=== PATIENT | female | born 1935 | race Caucasian/White ===

== ENCOUNTER → 2017-07-06 | Outpatient (CLI) | payer MEDICARE ==
[~2017-07-06] MED LIST: ACET500 PO; ALBU90OI INH; ASPI325; ASPI81CH PO; ASPI81EC PO; ATOR10; AZIT250 PO; BENZ100A PO; CALPHO600 PO; CEPH500 PO; CHOL10002 PO; CITA20 PO; CLON.5 PO; CLOP75; CLOP75 PO; CYAN1000 PO; EZET10 PO; FENO145 PO; FENO160 PO; FISH OIL; FURO20 PO; HEARTBURN RELI150 M1 PO; HYDACE5 PO; HYDCHL12.5 PO; HYDCHL25 PO; HYDCHL50; HYDR1TAB94; Hydrochlorothia50 MG PO; IRBE150 PO; LEVSOD75 PO; LEVSOD88; LEVSOD88 PO; LISI20 PO; LISI5 PO; LOSA25 PO; MULVITMIND PO; NITR.4SL SL; OMEG1CAP30 PO; OMEP20ER PO; ONDA4 PO; PANT40 PO; POTCHL10ER; POTCHL10ER PO; PRAV40 PO; Pravachol80 MG PO; SERT100 PO; SERT50; SIMV20 PO; VENL75ER PO; VERA180ERB PO
[2017-07-06 10:24] LABS: BASOPHILS ABSOLUTE AUTO 0.05 K/mm3 (0.00-0.23); BASOPHILS PERCENT AUTO 1 % (0-2); EOSINOPHILS ABSOLUTE AUTO 0.24 K/mm3 (0.00-0.68); EOSINOPHILS PERCENT AUTO 2 % (0-6); Hematocrit 38.3 % (33.0-51.0); Hemoglobin 12.9 g/dL (11.5-16.0); IMMATURE GRAN ABSOLUTE AUTO 0.03 K/mm3 (0.00-0.10); IMMATURE GRAN PERCENT AUTO 0 % (0-1); LYMPHOCYTES ABSOLUTE AUTO 1.65 K/mm3 (0.84-5.20); LYMPHOCYTES PERCENT AUTO 16 % (21-46); MONOCYTES ABSOLUTE AUTO 0.73 K/mm3 (0.16-1.47); MONOCYTES PERCENT AUTO 7 % (4-13); Mean Corpuscular HGB 31.5 pg (26.0-34.0); Mean Corpuscular HGB Conc 33.7 g/dL (31.5-36.5); Mean Corpuscular Volume 94 fL (80-100); Mean Platelet Volume 10.1 fL (9.1-12.4); NEUTROPHILS ABSOLUTE AUTO 7.82 K/mm3 (1.96-9.15); NEUTROPHILS PERCENT AUTO 74 % (41-73); Platelet Count 222 K/mm3 (150-400); RDW Coefficient Variation 12.2 % (11.7-14.2); RDW Standard Deviation 41.9 fL (35.1-46.3); Red Blood Cell Count 4.09 M/mm3 (3.80-5.20); White Blood Cell Count 10.52 K/mm3 (4.00-11.30)
[2017-07-06 10:41] LABS: Alanine Aminotransfer (ALT/SGP 27 U/L (12-78); Albumin/Globulin Ratio 1.3 (0.8-1.8); Alk Phos 75 U/L (40-126); Anion Gap 9 mmol/L (6-16); Aspartate Aminotrans (AST/SGOT 16 U/L (12-37); Bilirubin, Total 0.7 mg/dL (0.1-1.0); Blood Urea Nitrogen 11 mg/dL (8-24); Bun/Creatinine Ratio 12.4 (12.0-20.0); CO2, Blood 28 mmol/L (21-32); Calcium, Blood 9.5 mg/dL (8.5-10.1); Chloride, Blood 101 mmol/L (98-108); Creatinine, Blood 0.89 mg/dL (0.40-1.00); Globulin, Blood 3.2 g/dL (2.2-4.0); Glomerular Filtration Rate >60 (60-); Glucose, Blood 111 mg/dL (70-99); Sodium, Blood 138 mmol/L (136-145); Total Protein, Blood 7.2 g/dL (6.4-8.2)
== END ==
LOC: LAB EV 10:19
PROVIDERS: General Practice
DX: K21.9 Gastro-esophageal reflux disease without esophagitis (principal)
CPT/HCPCS: 80053; 85025

== ENCOUNTER 2018-01-13 11:13 | Emergency (ER) | payer MEDICARE ==
[~2018-01-13] VITALS: Ht 160 cm; Wt 59.0 kg
[~2018-01-13 11:13] MED LIST changes: -HEARTBURN RELI150 M1 PO; -HYDCHL12.5 PO; -IRBE150 PO
[2018-01-13] MEDS ORDERED: HEARTBURN RELI150 M1 PO (12:10)
[2018-01-13] MEDS ORDERED: HYDCHL12.5 PO (12:11)
[2018-01-13] MEDS ORDERED: IRBE150 PO (12:11)
[2018-01-13] MEDS ORDERED: SERT100 PO (12:12)
== END 2018-01-13 12:58 | disposition home or self-care (01) ==
LOC: ER 11:13
DX: F41.9 Anxiety disorder, unspecified (principal); F43.9 Reaction to severe stress, unspecified; I10 Essential (primary) hypertension; I25.10 Atherosclerotic heart disease of native coronary artery without angina pectoris; E03.9 Hypothyroidism, unspecified; Z88.5 Allergy status to narcotic agent; Z88.8 Allergy status to other drugs, medicaments and biological substances; Z88.6 Allergy status to analgesic agent; Z79.899 Other long term (current) drug therapy; Z79.01 Long term (current) use of anticoagulants; Z79.82 Long term (current) use of aspirin
CPT/HCPCS: 99283; Q0177

== ENCOUNTER 2019-03-03 09:09 | Day surgery (SDC) | payer MEDICARE ==
[~2019-03-03] VITALS: Ht 160 cm; Wt 64.5 kg
[~2019-03-03 09:09] MED LIST changes: +ACID REDUCER 1150 MG PO; +Abilify2 MG PO; +Flonase 0.05% N16 GM; +HEARTBURN RELI150 M1 PO; +HYDCHL12.5 PO; +IRBE150 PO; +OMEPRAZOLE20 MG PO; +Synthroid88 MCG PO
[2019-03-03] MEDS ORDERED: CYAN500 PO (10:22)
--- NOTE | 2019-03-03 14:40 | NUR ---
PT TO RECOVERY ROOM POST PROCEDURE. PT IS ALERT AND ORIENTED, ANSWERING QUESTIONS APPROPRIATELY. PT DENIES PAIN OR DISCOMFORT. MONITOR SR WITH 1ST DEGREE 70'S, B/P 123/60, SPO2 95% RA. R GROIN SOFT NO SWELLING/HEMATOMA, SHEATH IN PLACE, TEGADERM C,D,I. PLAN IS TO PULL SHEATH WHEN ACT 165 OR LESS. PT'S FAMILY @ BEDSIDE ATTENTIVE.
--- NOTE | 2019-03-03 16:25 | NUR ---
DR UNDERWOOD NOTIFIED OF PT'S ELEVATED B/P PRIOR TO SHEATH PULL, ORDERS RECEIVED; ADMINISTERED 10MG IV LABETOLOL.
--- NOTE | 2019-03-03 17:05 | NUR ---
6 FR SHEATH REMOVED, MANUAL PRESSURE X 22 MIN, SITE SOFT WITHOUT SWELLING/HEMATOMA, EMILIA AND TEGADERM DRSG IN PLACE.
--- NOTE | 2019-03-03 20:00 | NUR ---
CARE ASSUMPTION PT A&O X4. VSS. R GROIN SITE NOTED TO HAVE DRY RED/BROWN DISCHARGE ON GAUZE, SITE ASSESSED W/ DAY SHIFT RN W/ REPORT OF NO CHANGES. NO NEW BLEEDING, NO HEMATOMA. PT LAYING FLAT IN BED. WILL CONTINUE TO MONITOR AND PROVIDE CARE.
--- NOTE | 2019-03-04 06:31 | NUR ---
SHIFT SUMMARY PT A&O X4. VSS. R GROIN SITE WNL, NO BLEEDING, NO HEMATOMA. WILL CONTINUE TO MONITOR AND PROVIDE CARE UNTIL REPORT OFF TO DAY SHIFT RN.
--- NOTE | 2019-03-04 10:21 | NUR ---
SHIFT SUMMARY PT A&Ox4. CALM AND COOPERATIVE WITH CARE, PT RESTING IN BED FOR MAJORITY OF AM, UP TO BATHROOM WITH SBA. PT DENIES PAIN, SOB, NAUSEA, DIZZINESS/LIGHTHEADEDNESS AND CHEST PAIN DURING SHIFT. PT RIGHT GROIN SITE NO SIGNS OF ACTIVE BLEEDING OR HEMATOMA, SOFT AND TENDERS ON PALPATATION. SMALL AMOUNT OF DRIED BLOOD AT SITE AND SCANT AMOUNT OF BRUISING NOTED. EDUCATED PT AND DAUGHTER ON SITE CARE AND WHEN TO SEEK MEDICAL ATTENTION OR CALL 911 IF BLEEDING AND HOLD PRESSURE. VSS. NO OTHER ACUTE CHANGES NOTED. EDUCATED PT ON DISCHARGE INSTUCTIONS, MEDCAIONTS AND FOLLOW UP APPOINTMENTS. PT GIVEN PHYSICAL PRESCRIPTIONS FOR NORVASC AND IMDUR. SITE CHECKED RIGHT BEFORE DISCHAGE WITH NO CHANGES. PT LEFT ROOM VIA WHEELCHAIR AT 0950. PT STABLE UPON DISCHARGE.
== END 2019-03-04 10:35 | disposition home or self-care (01) ==
LOC: MHTC 09:09 → PCU 16:33 → MHTC 03-04 10:35
DX: I25.119 Atherosclerotic heart disease of native coronary artery with unspecified angina pectoris (principal); T82.855A Stenosis of coronary artery stent, initial encounter; I08.0 Rheumatic disorders of both mitral and aortic valves; G47.33 Obstructive sleep apnea (adult) (pediatric); I10 Essential (primary) hypertension; E03.9 Hypothyroidism, unspecified; E78.5 Hyperlipidemia, unspecified; E78.00 Pure hypercholesterolemia, unspecified; Z79.899 Other long term (current) drug therapy; Z79.02 Long term (current) use of antithrombotics/antiplatelets; Z88.5 Allergy status to narcotic agent; Z88.8 Allergy status to other drugs, medicaments and biological substances; Z88.6 Allergy status to analgesic agent
CPT/HCPCS: 85347; 93005; 93010; 93454; 93458; 93571; 99152; 99153; C1769; C1887; J0360; J1644; J2250; J3010; J7030; Q9967

== ENCOUNTER 2019-07-25 08:32 | Day surgery (SDC) | payer MEDICARE ==
[~2019-07-25 08:32] MED LIST changes: +AMLO5 PO; +CYAN500 PO; +DESV50 PO; +Isosorbide Mono30 MG PO; +METO25ER PO
== END 2019-07-25 23:40 | disposition home or self-care (01) ==
LOC: MOI US 08:32
DX: C50.911 Malignant neoplasm of unspecified site of right female breast (principal)
CPT/HCPCS: 19285; 77065

== ENCOUNTER 2019-07-30 08:24 | Day surgery (SDC) | payer MEDICARE ==
[~2019-07-30] VITALS: Ht 160 cm; Wt 72.3 kg
--- NOTE | 2019-07-30 10:44 | NUR ---
Ambulatory in Day Surgery History, Chart, Medications and Allergies reviewed before start of procedure. Lungs clear T/O to Auscultation. Patient confirms NPO status and agrees with scheduled surgery. Pre-Op teaching done. Pt verbalizes understanding. Patient States Post-Procedure ride home has been arranged.
--- NOTE | 2019-07-30 14:15 | NUR ---
"DAY SURGERY RN | REPORT FROM FREDA MACARIO O2 APPLIED TO PATIENT (2 L) PATIENT WAS O2 SAT BELOW 90%. DENIES PAIN AND [place]. TIRTRATED O2 TO 1 L PATIENT IN MID 90'S. PATIENT TOLERATING PO FLUIDS AND FOOD. DISCHARGE INSTRUCTIONS GIVEN TO PATIENT WITH FAMILY PRESENT. NO ISSUES OR QUESTIONS. RX GIVEN TO FAMILY WHO TOOK THE SCRIPT TO PHARMACY. COPY IN CHART."
--- NOTE | 2019-07-30 14:36 | NUR ---
"DAY SURGERY RN | DISCHARGE VSS. SITE C/D/I. NO ISSUES. TAKEN IN WHEELCHAIR TO FRONT ENTRANCE BY VOLUNTEER."
--- NOTE | 2019-07-31 16:21 | NUR ---
07/31/19 1621 Dolores Yanes VERIFICATIONS: EDIT CHART.
== END 2019-07-30 22:50 | disposition home or self-care (01) ==
LOC: RAD 08:24 → ORSCMMR 08:27 → RAD 09:30 → NM 09:30 → RAD 22:50
DX: C50.811 Malignant neoplasm of overlapping sites of right female breast (principal); I10 Essential (primary) hypertension; E78.5 Hyperlipidemia, unspecified; E03.9 Hypothyroidism, unspecified; G47.33 Obstructive sleep apnea (adult) (pediatric); F32.9 Major depressive disorder, single episode, unspecified; Z17.0 Estrogen receptor positive status [ER+]; Z79.82 Long term (current) use of aspirin; Z79.899 Other long term (current) drug therapy; Z79.02 Long term (current) use of antithrombotics/antiplatelets; Z88.6 Allergy status to analgesic agent; Z88.5 Allergy status to narcotic agent; Z99.89 Dependence on other enabling machines and devices
CPT/HCPCS: 38792; 76098; A9520; J0690; J1100; J1885; J2370; J2405; J2704; J3010; J7120; Q9968

== ENCOUNTER 2020-02-18 17:47 | Emergency (ER) | payer MEDICARE ==
[~2020-02-18] VITALS: Ht 160 cm; Wt 72.6 kg
[~2020-02-18 17:47] MED LIST changes: -ASPI81CH PO; +Aspirin EC81 MG PO; -Pravachol80 MG PO; +Pravastatin Sod80 MG PO
[2020-02-18 18:30] LABS: Source, Urine Clean Catch
[2020-02-18 18:38] LABS: BASOPHILS ABSOLUTE AUTO 0.06 K/mm3 (0.00-0.23); BASOPHILS PERCENT AUTO 1 % (0-2); EOSINOPHILS ABSOLUTE AUTO 0.26 K/mm3 (0.00-0.68); EOSINOPHILS PERCENT AUTO 4 % (0-6); Hematocrit 37.2 % (33.0-51.0); Hemoglobin 12.4 g/dL (11.5-16.0); IMMATURE GRAN ABSOLUTE AUTO 0.02 K/mm3 (0.00-0.10); IMMATURE GRAN PERCENT AUTO 0 % (0-1); LYMPHOCYTES ABSOLUTE AUTO 1.54 K/mm3 (0.84-5.20); LYMPHOCYTES PERCENT AUTO 21 % (21-46); MONOCYTES ABSOLUTE AUTO 0.71 K/mm3 (0.16-1.47); MONOCYTES PERCENT AUTO 10 % (4-13); Mean Corpuscular HGB 31.3 pg (26.0-34.0); Mean Corpuscular HGB Conc 33.3 g/dL (31.5-36.5); Mean Corpuscular Volume 94 fL (80-100); Mean Platelet Volume 10.2 fL (9.1-12.4); NEUTROPHILS ABSOLUTE AUTO 4.71 K/mm3 (1.96-9.15); NEUTROPHILS PERCENT AUTO 65 % (41-73); Platelet Count 189 K/mm3 (150-400); RDW Coefficient Variation 12.5 % (11.7-14.2); RDW Standard Deviation 43.1 fL (35.1-46.3); Red Blood Cell Count 3.96 M/mm3 (3.80-5.20)
[2020-02-18 18:42] LABS: Appearance, Urine Clear (Clear); Bilirubin, Urine Neg (Neg); Blood, Urine 2+ (Neg); Color, Urine Yellow (P-Yellow); Glucose Qualitative, Urine Neg (Neg); Ketones, Urine Neg (Neg); Leukocyte Esterase, Urine 3+ (Neg); Nitrite, Urine Neg (Neg); Protein, Urine 1+ (Neg); Urobilinogen, Urine NORM (Normal)
[2020-02-18 18:51] LABS: Bacteria Many /hpf; Red Blood Cells, Urine 0-2 /hpf (0-2); Squamous Epithelial Cells Rare /hpf (Few); White Blood Cells, Urine 50-100 /hpf (0-5)
[2020-02-18 19:00] LABS: Albumin/Globulin Ratio 1.3 (0.8-1.8); Bilirubin, Total 0.6 mg/dL (0.1-1.0); Bun/Creatinine Ratio 21.9 (12.0-20.0); Calcium, Blood 9.9 mg/dL (8.5-10.1); Creatinine, Blood 0.96 mg/dL (0.40-1.00); Globulin, Blood 3.1 g/dL (2.2-4.0); Potassium, Blood 4.4 mmol/L (3.5-5.5); Total Protein, Blood 7.1 g/dL (6.4-8.2)
[2020-02-18] MEDS ORDERED: CEPH500 PO (21:49)
[2020-02-19] MEDS ORDERED: ANAS1 PO (16:00)
[2020-02-19] MEDS ORDERED: ABILIFY MYCITE2 MG PO (17:51)
[2020-02-19] MEDS ORDERED: HYDCHL50 PO (17:52)
[2020-02-19] MEDS ORDERED: ISOSORBIDE MONO60 MG PO (17:53)
[2020-02-19] MEDS ORDERED: EUTHYROX88 MCG PO (17:54)
[2020-02-19] MEDS ORDERED: LOSARTAN POTAS100 M1 PO (17:55)
[2020-02-19] MEDS ORDERED: METO25ER PO (17:57)
[2020-02-19] MEDS ORDERED: Klor-Con 1010 MEQ PO (17:58)
[2020-02-19] MEDS ORDERED: AMLO5 PO (18:13)
== END 2020-02-18 22:35 | disposition home or self-care (01) ==
LOC: ER 17:47
PROVIDERS: Emergency Medicine
DX: N12 Tubulo-interstitial nephritis, not specified as acute or chronic (principal); I10 Essential (primary) hypertension; I25.10 Atherosclerotic heart disease of native coronary artery without angina pectoris; E03.9 Hypothyroidism, unspecified; Z95.5 Presence of coronary angioplasty implant and graft; Z79.02 Long term (current) use of antithrombotics/antiplatelets; Z79.899 Other long term (current) drug therapy; Z79.82 Long term (current) use of aspirin
CPT/HCPCS: 36415; 74177; 80053; 81001; 85025; 87077; 87086; 87147; 87186; 96374; 99284-25; J0696; J1885; Q9967

== ENCOUNTER 2020-02-19 13:56 | Observation (INO) | payer MEDICARE ==
[~2020-02-19] VITALS: Ht 160 cm; Wt 72.6 kg
[2020-02-19 14:51] LABS: BASOPHILS ABSOLUTE AUTO 0.04 K/mm3 (0.00-0.23); BASOPHILS PERCENT AUTO 1 % (0-2); EOSINOPHILS ABSOLUTE AUTO 0.22 K/mm3 (0.00-0.68); EOSINOPHILS PERCENT AUTO 3 % (0-6); Hematocrit 35.6 % (33.0-51.0); Hemoglobin 11.8 g/dL (11.5-16.0); IMMATURE GRAN ABSOLUTE AUTO 0.02 K/mm3 (0.00-0.10); IMMATURE GRAN PERCENT AUTO 0 % (0-1); LYMPHOCYTES ABSOLUTE AUTO 1.29 K/mm3 (0.84-5.20); LYMPHOCYTES PERCENT AUTO 18 % (21-46); MONOCYTES ABSOLUTE AUTO 0.57 K/mm3 (0.16-1.47); MONOCYTES PERCENT AUTO 8 % (4-13); Mean Corpuscular HGB 31.3 pg (26.0-34.0); Mean Corpuscular HGB Conc 33.1 g/dL (31.5-36.5); Mean Corpuscular Volume 94 fL (80-100); Mean Platelet Volume 10.2 fL (9.1-12.4); NEUTROPHILS ABSOLUTE AUTO 4.86 K/mm3 (1.96-9.15); NEUTROPHILS PERCENT AUTO 70 % (41-73); Platelet Count 186 K/mm3 (150-400); RDW Coefficient Variation 12.6 % (11.7-14.2); RDW Standard Deviation 43.1 fL (35.1-46.3); Red Blood Cell Count 3.77 M/mm3 (3.80-5.20)
[2020-02-19] MEDS ORDERED: ANAS1 PO (16:00)
[2020-02-19 16:49] LABS: Source, Urine Voided
[2020-02-19 16:57] LABS: Appearance, Urine Clear (Clear); Bilirubin, Urine Neg (Neg); Blood, Urine Neg (Neg); Color, Urine Yellow (P-Yellow); Glucose Qualitative, Urine Neg (Neg); Ketones, Urine Neg (Neg); Leukocyte Esterase, Urine Neg (Neg); Nitrite, Urine Neg (Neg); Protein, Urine Neg (Neg); Specific Gravity, Urine 1.015 (1.003-1.022); Urobilinogen, Urine NORM (Normal)
[2020-02-19] MEDS ORDERED: ABILIFY MYCITE2 MG PO (17:51)
[2020-02-19] MEDS ORDERED: HYDCHL50 PO (17:52)
[2020-02-19] MEDS ORDERED: ISOSORBIDE MONO60 MG PO (17:53)
[2020-02-19] MEDS ORDERED: EUTHYROX88 MCG PO (17:54)
[2020-02-19] MEDS ORDERED: LOSARTAN POTAS100 M1 PO (17:55)
[2020-02-19] MEDS ORDERED: METO25ER PO (17:57)
[2020-02-19] MEDS ORDERED: Klor-Con 1010 MEQ PO (17:58)
[2020-02-19] MEDS ORDERED: AMLO5 PO (18:13)
--- NOTE | 2020-02-19 18:48 | NUR ---
SHIFT SUMMARY: ASSUMED CARE OF PATIENT UPON HER ARRIVAL FROM ED AT 1720. A&O X 4, PLEASANT AND COOPERATIVE. STATED PAIN IS WELL CONTROLLED AT THIS TIME. GETTING UP TO BR INDEPENDENTLY. FLU VACCINE NOT AVAILABLE AT THIS TIME. PLAN IS FOR IV ABX.
--- NOTE | 2020-02-20 04:37 | NUR ---
MATERIAL CHASER SUMMARY PT BEGAN SHIFT W NO PAIN AND REQUESTING FOOD HOWEVER, PT SUDDENLY C/O 12/04 R FLANK PAIN AND WAS GIVEN IV TORADOL WHICH GAVE HER MUCH RELIEF. PT SLEPT MAJORITY OF THE NIGHT W CPAP ON AND CONTINUOUS PULSE OX WHICH ALARMED SEVERAL TIMES DUE TO A PULSE RATE DROPPING INTO THE 40'S, PULSE WOULD RISE TO THE MID 50'S WHILE THE PT WAS AWAKE.
[2020-02-20 04:56] LABS: BASOPHILS ABSOLUTE AUTO 0.02 K/mm3 (0.00-0.23); BASOPHILS PERCENT AUTO 0 % (0-2); EOSINOPHILS PERCENT AUTO 4 % (0-6); Hematocrit 31.6 % (33.0-51.0); Hemoglobin 10.5 g/dL (11.5-16.0); IMMATURE GRAN ABSOLUTE AUTO 0.02 K/mm3 (0.00-0.10); IMMATURE GRAN PERCENT AUTO 0 % (0-1); LYMPHOCYTES ABSOLUTE AUTO 1.33 K/mm3 (0.84-5.20); LYMPHOCYTES PERCENT AUTO 26 % (21-46); MONOCYTES ABSOLUTE AUTO 0.48 K/mm3 (0.16-1.47); MONOCYTES PERCENT AUTO 9 % (4-13); Mean Corpuscular HGB 31.3 pg (26.0-34.0); Mean Corpuscular HGB Conc 33.2 g/dL (31.5-36.5); Mean Corpuscular Volume 94 fL (80-100); Mean Platelet Volume 10.3 fL (9.1-12.4); NEUTROPHILS ABSOLUTE AUTO 3.11 K/mm3 (1.96-9.15); NEUTROPHILS PERCENT AUTO 60 % (41-73); Platelet Count 153 K/mm3 (150-400); RDW Coefficient Variation 12.6 % (11.7-14.2); RDW Standard Deviation 43.4 fL (35.1-46.3); Red Blood Cell Count 3.36 M/mm3 (3.80-5.20); White Blood Cell Count 5.16 K/mm3 (4.00-11.30)
[2020-02-20 05:20] LABS: Bun/Creatinine Ratio 22.4 (12.0-20.0); Calcium, Blood 8.6 mg/dL (8.5-10.1); Creatinine, Blood 0.98 mg/dL (0.40-1.00); Potassium, Blood 4.2 mmol/L (3.5-5.5)
--- NOTE | 2020-02-20 11:10 | NUR ---
SPOKE TO DR GREGG THIS AM. RE LOW H/R LOW 40'S LAST NITE WAKEN AT MID 50'S. IMPROVED DURING DAYS WHEN AWAKE. OKAY GIVE ALL HEART MEDS.
--- NOTE | 2020-02-20 18:50 | NUR ---
PT VERY PLEASANT TODAY. HAD BEST FRIEND IN TO VISIT TODAY. DENIES PAIN TOODAY. LOW H/R DISCUSSED WITH DR GREGG. NO MED CHANGES MADE TODAY. NO NEW CONCERNS AT THIS TIME. DID WALK PASCAL TODAY WITH AIDE. BED IN LOW POSITION CALL LITE IN REACH, CALLS APPROP
--- NOTE | 2020-02-21 04:05 | NUR ---
SUMMARY PT HAD NO ISSUES NOTED. PT DENIES ANY OF THE FLANK PAIN. PT HAS SLEPT WELL. PT CURRENTLY SLEEPING IN NO DISTRESS. CALL LIGHT IN REACH.
[2020-02-21 05:57] LABS: Bun/Creatinine Ratio 22.2 (12.0-20.0); Calcium, Blood 9.2 mg/dL (8.5-10.1); Creatinine, Blood 0.99 mg/dL (0.40-1.00); Potassium, Blood 4.3 mmol/L (3.5-5.5)
[2020-02-21] MEDS ORDERED: LEVO750 PO (15:43)
--- NOTE | 2020-02-21 16:41 | NUR ---
DISCHARGE INSTRUCTIONS COMPLETED AND DICUSSED WITH PT EXPRESSING UNDERSTANDING. SCRIPT FAXED TO [facility] PER PT REQUEST. TO [facility] VIA W/C.
== END 2020-02-21 16:05 | disposition home or self-care (01) ==
LOC: ER 13:56 → MEDS 13:57
PROVIDERS: Emergency Medicine; Internal Medicine Endocrinology, Diabetes & Metabolism; ADMIT Family Medicine
DX: N10 Acute pyelonephritis (principal); I25.10 Atherosclerotic heart disease of native coronary artery without angina pectoris; I12.9 Hypertensive chronic kidney disease with stage 1 through stage 4 chronic kidney disease, or unspecified chronic kidney disease; N18.3 Chronic kidney disease, stage 3 (moderate); F41.8 Other specified anxiety disorders; F32.9 Major depressive disorder, single episode, unspecified; Z79.899 Other long term (current) drug therapy; Z79.02 Long term (current) use of antithrombotics/antiplatelets; Z79.82 Long term (current) use of aspirin; Z86.73 Personal history of transient ischemic attack (TIA), and cerebral infarction without residual deficits
CPT/HCPCS: 36415; 80048; 81003; 83605; 85025; 87086; 94660; 94762; 96365; 96366; 96375; 99284; A9270; A9270-GY; G0378; J0696; J1885; J7050

== ENCOUNTER 2020-03-03 18:03 | Emergency (ER) | payer MEDICARE ==
[~2020-03-03] VITALS: Ht 160 cm; Wt 69.4 kg
[~2020-03-03 18:03] MED LIST changes: +ABILIFY MYCITE2 MG PO; +ANAS1 PO; +EUTHYROX88 MCG PO; +HYDCHL50 PO; +ISOSORBIDE MONO60 MG PO; +Klor-Con 1010 MEQ PO; +LEVO750 PO; +LOSARTAN POTAS100 M1 PO
[2020-03-03 18:26] LABS: Source, Urine Clean Catch
[2020-03-03 18:29] LABS: Bilirubin, Urine Neg (Neg); Blood, Urine Neg (Neg); Glucose Qualitative, Urine Neg (Neg); Ketones, Urine Neg (Neg); Leukocyte Esterase, Urine Neg (Neg); Nitrite, Urine Neg (Neg); Protein, Urine Neg (Neg); Urobilinogen, Urine NORM (Normal)
[2020-03-03 18:36] LABS: Appearance, Urine Clear (Clear); Color, Urine Yellow (P-Yellow)
[2020-03-03 20:17] LABS: BASOPHILS ABSOLUTE AUTO 0.05 K/mm3 (0.00-0.23); BASOPHILS PERCENT AUTO 1 % (0-2); EOSINOPHILS ABSOLUTE AUTO 0.34 K/mm3 (0.00-0.68); EOSINOPHILS PERCENT AUTO 5 % (0-6); Hemoglobin 10.8 g/dL (11.5-16.0); IMMATURE GRAN ABSOLUTE AUTO 0.02 K/mm3 (0.00-0.10); IMMATURE GRAN PERCENT AUTO 0 % (0-1); LYMPHOCYTES ABSOLUTE AUTO 1.46 K/mm3 (0.84-5.20); LYMPHOCYTES PERCENT AUTO 21 % (21-46); MONOCYTES ABSOLUTE AUTO 0.51 K/mm3 (0.16-1.47); MONOCYTES PERCENT AUTO 7 % (4-13); Mean Corpuscular HGB 30.9 pg (26.0-34.0); Mean Corpuscular HGB Conc 32.7 g/dL (31.5-36.5); Mean Corpuscular Volume 95 fL (80-100); Mean Platelet Volume 9.8 fL (9.1-12.4); NEUTROPHILS ABSOLUTE AUTO 4.58 K/mm3 (1.96-9.15); NEUTROPHILS PERCENT AUTO 66 % (41-73); Platelet Count 175 K/mm3 (150-400); RDW Coefficient Variation 12.4 % (11.7-14.2); RDW Standard Deviation 42.7 fL (35.1-46.3); Red Blood Cell Count 3.49 M/mm3 (3.80-5.20); White Blood Cell Count 6.96 K/mm3 (4.00-11.30)
[2020-03-03 20:39] LABS: Alanine Aminotransfer (ALT/SGP 17 U/L (12-78); Albumin, Blood 3.7 g/dL (3.4-5.0); Albumin/Globulin Ratio 1.4 (0.8-1.8); Alk Phos 89 U/L (50-136); Anion Gap 9 mmol/L (6-16); Aspartate Aminotrans (AST/SGOT 14 U/L (12-37); Bilirubin, Total 0.5 mg/dL (0.1-1.0); Blood Urea Nitrogen 20 mg/dL (8-24); Bun/Creatinine Ratio 22.2 (12.0-20.0); CO2, Blood 22 mmol/L (21-32); Calcium, Blood 9.4 mg/dL (8.5-10.1); Chloride, Blood 104 mmol/L (98-108); Globulin, Blood 2.7 g/dL (2.2-4.0); Glomerular Filtration Rate >60 (60-); Glucose, Blood 86 mg/dL (70-99); Potassium, Blood 4.5 mmol/L (3.5-5.5); Sodium, Blood 135 mmol/L (136-145); Total Protein, Blood 6.4 g/dL (6.4-8.2); Troponin I <0.015 ng/mL (0.000-0.040)
== END 2020-03-03 21:45 | disposition home or self-care (01) ==
LOC: ER 18:03
PROVIDERS: Emergency Medicine
DX: R10.9 Unspecified abdominal pain (principal); E03.9 Hypothyroidism, unspecified; I10 Essential (primary) hypertension; I25.10 Atherosclerotic heart disease of native coronary artery without angina pectoris; Z79.82 Long term (current) use of aspirin; Z79.02 Long term (current) use of antithrombotics/antiplatelets; Z79.899 Other long term (current) drug therapy; Z86.73 Personal history of transient ischemic attack (TIA), and cerebral infarction without residual deficits; Z95.5 Presence of coronary angioplasty implant and graft
CPT/HCPCS: 36415; 80053; 81003; 84484; 85025; 93005; 93010; 99284-25

== ENCOUNTER → 2020-09-03 | Outpatient (CLI) | payer MEDICARE ==
[2020-09-03 10:02] LABS: Anion Gap 9 mmol/L (6-16); Blood Urea Nitrogen 11 mg/dL (8-24); Bun/Creatinine Ratio 14.1 (12.0-20.0); CO2, Blood 26 mmol/L (21-32); Calcium, Blood 9.6 mg/dL (8.5-10.1); Chloride, Blood 94 mmol/L (98-108); Creatinine, Blood 0.78 mg/dL (0.40-1.00); Glomerular Filtration Rate >60 (60-); Glucose, Blood 177 mg/dL (70-99); Potassium, Blood 4.4 mmol/L (3.5-5.5); Sodium, Blood 129 mmol/L (136-145)
== END | disposition home or self-care (01) ==
LOC: LAB EV 09:53 → LAB SHORT 09:53
PROVIDERS: Physician Assistant
DX: E03.9 Hypothyroidism, unspecified (principal); F44.89 Other dissociative and conversion disorders; R82.90 Unspecified abnormal findings in urine
CPT/HCPCS: 80048; 84443; 87086